=== PATIENT | female | born 1945 | race Asian ===

== ENCOUNTER → 2020-04-06 10:42 | Outpatient (CLI) | payer BC, SELFPAY ==
--- NOTE | ~2020-04-06 | DEXA_ITS ---
Bone Density Report Name: Lawson Verma Age: 75 Sex: Female Ethnicity: Date of : 1945 Indication: postmenopausal osteoporosis; monitoring treatment; height loss; prior fracture; Referring Provider: Lobo Hanson Study: Bone densitometry was performed. Exam Date: April 06, 2020 Accession number: [id number] Bone Density: Region BMD T-score Z-score Classification AP Spine (L1-L4) 0.783 -2.4 -0.1 Osteopenia Femoral Neck (Left) 0.710 -1.3 0.7 Osteopenia Total Hip (Left) 0.779 -1.3 0.3 Osteopenia Femoral Neck (Right) 0.730 -1.1 0.9 Osteopenia Total Hip (Right) 0.758 -1.5 0.2 Osteopenia Total Hip Mean 0.769 -1.4 0.3 Osteopenia World Health Organization criteria for BMD impression classify patients as: Normal (T-score at or above -1.0), Osteopenia (T-score between -1.0 and -2.5), or Osteoporosis (T-score at or below -2.5). 10-year Fracture Risk: FRAX not reported because: Treated for osteoporosis Previous Exams: Region Exam Age BMD T-score BMD Change BMD Change Date g/cm2 vs Baseline vs Previous AP Spine(L1-L4) 04/06/2020 75 0.783 -2.4 -0.079 0.016 11/24/2017 72 0.767 -2.5 -0.095 0.000 10/18/2015 70 0.767 -2.5 -0.095 0.010 09/11/2013 68 0.758 -2.6 -0.105 0.002 06/12/2011 66 0.756 -2.6 -0.106 -0.018 05/02/2010 65 0.774 -2.5 -0.089 -0.009 04/26/2009 64 0.783 -2.4 -0.079 0.026* 06/24/2007 62 0.757 -2.6 -0.105 -0.011 06/20/2005 60 0.768 -2.5 -0.094 -0.094 10/21/2003 58 0.862 -1.7 Total Hip(Left) 04/06/2020 75 0.779 -1.3 -0.059 -0.007 11/24/2017 72 0.786 -1.3 -0.052 0.000 10/18/2015 70 0.786 -1.3 -0.052 -0.028* 09/11/2013 68 0.814 -1.0 -0.024 0.000 06/12/2011 66 0.814 -1.0 -0.024 0.008 04/26/2009 64 0.806 -1.1 -0.032 -0.032 10/21/2003 58 0.838 -0.9 Total Hip(Right) 04/06/2020 75 0.758 -1.5 -0.028 -0.005 11/24/2017 72 0.762 -1.5 -0.023 -0.001 10/18/2015 70 0.764 -1.5 -0.022 -0.073* 09/11/2013 68 0.836 -0.9 0.051 0.055* 06/12/2011 66 0.781 -1.3 -0.004 0.013 04/26/2009 64 0.768 -1.4 -0.017 -0.017 10/21/2003 58 0.785 -1.3 *Denotes significance at 95% confidence level, LSC fo
--- NOTE | ~2020-04-06 | MM_ITS ---
EXAMINATION: MM screening [facility] BI w [place] HISTORY: Screening mammogram TECHNIQUE: Craniocaudal and mediolateral oblique 3-D tomosynthesis images were obtained and synthetic 2-D images were generated. CAD analysis was submitted and interpreted. COMPARISON: Comparison to multiple prior studies sequentially, with oldest reviewed study dated 10/18. BREAST PARENCHYMAL COMPOSITION: There are scattered areas of fibroglandular density. FINDINGS: There is an enlarging mass in the upper outer quadrant of the right breast appearing 1.7 cm . There is a smaller mass in the lower central aspect of the right breast measuring 7 mm. There are a re changes in both breasts consistent with previous breast reduction surgery. No mammographic evidenc e for malignancy in the left breast. IMPRESSION: 1. Enlarging right breast masses. 2. Right breast ultrasound recommended. BI-RADS Category 0: Incomplete: Needs additional imaging evaluation. Reviewed, dictated and finalized at location A.
== END ==
PROVIDERS: PCP Family Medicine Adolescent Medicine; Referring Provider Nurse Practitioner Obstetrics & Gynecology; Visit Provider Obstetrics & Gynecology
DX: Z78.0 Asymptomatic menopausal state (principal); Z12.31 Encounter for screening mammogram for malignant neoplasm of breast; R92.8 Other abnormal and inconclusive findings on diagnostic imaging of breast
CPT/HCPCS: 77063; 77067; 77080

== ENCOUNTER → 2020-05-12 09:50 | Outpatient (CLI) | payer BC, SELFPAY ==
--- NOTE | ~2020-05-12 | US_ITS ---
US breast RT complete 05/12/2020 10:14 Indication: Enlarging right breast mass Procedure: High-resolution ultrasound of the right breast Comparison: Comparison to multiple prior studies sequentially, with oldest reviewed study dated 10/18. Findings: In the area of patient's scar at 12:00, 2 cm from the nipple there is an irregular shaped h ypoechoic mass with posterior shadowing, likely fibrosis. At 1:00, 2 cm from the nipple there is a 5 mm cyst. There is an adjacent 4 mm cyst. At 7:00, 4 cm from the nipple, there is a 7 mm cyst. At 9:00 in the area of enlarging mass seen on mammogram there is a 1.8 cm cyst. Impression: 1: 1.8 cm cyst at 9:00 corresponding to the enlarging mass seen on mammography. No evidence for malig etienne. Routine yearly screening mammogram and regular clinical breast examination are recommended. BI-RADS CATEGORY 2 - BENIGN FINDINGS Reviewed, dictated and finalized at location A. Impression: 1: 1.8 cm cyst at 9:00 corresponding to the enlarging mass seen on mammography. No evidence for malignancy. Routine yearly screening mammogram and regular clinical breast examination are recommended. BI-RADS CATEGORY 2 - BENIGN FINDINGS
== END ==
PROVIDERS: Visit Provider Obstetrics & Gynecology
DX: R92.8 Other abnormal and inconclusive findings on diagnostic imaging of breast (principal)
CPT/HCPCS: 76641

== ENCOUNTER → 2021-04-27 12:45 | Outpatient (CLI) | payer BC, SELFPAY ==
--- NOTE | ~2021-04-27 | MM_ITS ---
EXAMINATION: MM screening [facility] BI w [place] HISTORY: Screening TECHNIQUE: Craniocaudal and mediolateral oblique 3-D tomosynthesis images were obtained and synthetic 2-D images were generated. CAD analysis was submitted and interpreted. COMPARISON: Comparison to multiple prior studies sequentially, with oldest reviewed study dated 11/05. BREAST PARENCHYMAL COMPOSITION: There are scattered areas of fibroglandular density. FINDINGS: Decreased size of benign-appearing right breast mass previously characterized as a cyst by ultrasound. There is no evidence of suspicious mass, calcification, or architectural distortion to anderson ggest malignancy in either breast. There has been no suspicious interval change. IMPRESSION: 1. No mammographic evidence of malignancy. 2. Recommend routine screening mammography in one year. BI-RADS Category 2: Benign finding(s). Reviewed, dictated and finalized at location A.
== END ==
PROVIDERS: Visit Provider Nurse Practitioner Obstetrics & Gynecology
DX: Z12.31 Encounter for screening mammogram for malignant neoplasm of breast (principal)
CPT/HCPCS: 77063; 77067

== ENCOUNTER → 2022-11-01 10:49 | Outpatient (CLI) | payer BC, SELFPAY ==
--- NOTE | ~2022-11-01 | US_ITS ---
Pelvic ultrasound. Clinical History: Pelvic pain Technique: Realtime transabdominal and transvaginal scanning of the pelvis was performed. Color flow Doppler and Doppler spectral analysis were performed. Findings: The uterus is anteverted. The endometrial stripe has a thickness of 2 mm. Probable small n abothian cyst noted. There is a 2.2 x 1.2 cm right ovarian cyst. There is ovarian tissue splayed around the cyst. The left ovary is not visualized. No significant left ovarian or adnexal mass is seen. There is no evidence of free fluid in the cul de sac. Impression: 2.2 x 1.2 simple appearing right ovarian cyst. No further follow-up required for this finding. Reviewed, dictated and finalized at location . SLITTER Impression: 2.2 x 1.2 simple appearing right ovarian cyst. No further follow-up required fo r this finding.
== END ==
PROVIDERS: PCP Family Medicine Adolescent Medicine; Visit Provider Physician Assistant
DX: R10.31 Right lower quadrant pain (principal); N83.201 Unspecified ovarian cyst, right side
CPT/HCPCS: 76830; 76856

== ENCOUNTER → 2023-06-05 10:23 | Outpatient (CLI) | payer MEDICARE, OTHER, SELFPAY ==
--- NOTE | ~2023-06-05 | DEXA_ITS ---
Bone Density Report Name: SHERIE GRIFFIN Age: 78 Sex: Female Ethnicity: Date of : 1945 Indication: osteopenia; monitoring treatment; height loss; prior fracture; hysterectomy; postmenopausal Referring Provider: MERCEDES WU Study: Bone densitometry was performed. Exam Date: June 05, 2023 Accession number: [id number] Bone Density: Region BMD T-score Z-score Classification AP Spine (L1-L4) 0.780 -2.4 0.0 Osteopenia Femoral Neck (Left) 0.671 -1.6 0.5 Osteopenia Total Hip (Left) 0.794 -1.2 0.6 Osteopenia Femoral Neck (Right) 0.715 -1.2 0.9 Osteopenia Total Hip (Right) 0.758 -1.5 0.3 Osteopenia Total Hip Mean 0.776 -1.4 0.5 Osteopenia World Health Organization criteria for BMD impression classify patients as: Normal (T-score at or above -1.0), Osteopenia (T-score between -1.0 and -2.5), or Osteoporosis (T-score at or below -2.5). 10-year Fracture Risk: FRAX not reported because: Treated for osteoporosis Previous Exams: Region Exam Age BMD T-score BMD Change BMD Change Date g/cm2 vs Baseline vs Previous AP Spine(L1-L4) 06/05/2023 78 0.780 -2.4 -0.083 -0.003 04/06/2020 75 0.783 -2.4 -0.079 0.016 11/24/2017 72 0.767 -2.5 -0.095 0.000 10/18/2015 70 0.767 -2.5 -0.095 0.010 09/11/2013 68 0.758 -2.6 -0.105 0.002 06/12/2011 66 0.756 -2.6 -0.106 -0.018 05/02/2010 65 0.774 -2.5 -0.089 -0.009 04/26/2009 64 0.783 -2.4 -0.079 0.026* 06/24/2007 62 0.757 -2.6 -0.105 -0.105 10/21/2003 58 0.862 -1.7 Total Hip(Left) 06/05/2023 78 0.794 -1.2 -0.043 0.016 04/06/2020 75 0.779 -1.3 -0.059 -0.007 11/24/2017 72 0.786 -1.3 -0.052 0.000 10/18/2015 70 0.786 -1.3 -0.052 -0.028* 09/11/2013 68 0.814 -1.0 -0.024 0.000 06/12/2011 66 0.814 -1.0 -0.024 0.008 04/26/2009 64 0.806 -1.1 -0.032 -0.032 10/21/2003 58 0.838 -0.9 Total Hip(Right) 06/05/2023 78 0.758 -1.5 -0.028 0.000 04/06/2020 75 0.758 -1.5 -0.028 -0.005 11/24/2017 72 0.762 -1.5 -0.023 -0.001 10/18/2015 70 0.764 -1.5 -0.022 -0.073* 09/11/2013 68 0.836 -0.9 0.051 0.055* 06/12/2011 66 0.781 -1.3 -0.004 0.013 04/26/2009 64 0.768 -1.4 -0.017 -0.017 10/21/2003 58 0.785 -1.
== END ==
PROVIDERS: PCP Family Medicine Adolescent Medicine; Visit Provider Obstetrics & Gynecology Gynecology
DX: M85.88 Other specified disorders of bone density and structure, other site (principal); Z78.0 Asymptomatic menopausal state
CPT/HCPCS: 77080

== ENCOUNTER → 2023-08-05 09:15 | Outpatient (CLI) | payer MEDICARE, OTHER, SELFPAY ==
--- NOTE | ~2023-08-05 | US_ITS ---
EXAMINATION: US abdomen limited DATE: 08/05/2023 09:47 INDICATION: Right upper quadrant abdominal pain. Diarrhea. TECHNIQUE: Multiple grayscale and Doppler ultrasound images of the abdomen were obtained. COMPARISON: CT abdomen and pelvis 07/29/2006 FINDINGS: Abdominal aorta is normal in caliber. The visualized portions of the head, body, and tail o f the pancreas are normal. The liver is normal without focal lesion. There is normal flow in main por hua vein. The gallbladder is normal in size. No gallstones or gallbladder wall thickening. There is n o sonographic Lui sign. The common duct is normal and measures 2 mm. Right kidney is normal. IMPRESSION: 1. Normal right upper quadrant ultrasound. Reviewed, dictated and finalized at location E.
== END ==
PROVIDERS: PCP Obstetrics & Gynecology Gynecology; Visit Provider Nurse Practitioner Family
DX: R10.11 Right upper quadrant pain (principal)
CPT/HCPCS: 76705

== ENCOUNTER 2024-02-02 11:07 | Outpatient (CLI) | payer MEDICARE, OTHER, SELFPAY ==
--- NOTE | ~2024-02-02 | CT_ITS ---
Non-contrast CT scan of the Abdomen and Pelvis Clinical indication: Abdominal pain Technique: 2.5 mm axial scans were obtained through the abdomen and pelvis without intravenous or or al contrast. Dose reduction technique was used on this scan by utilizing automated exposure control a nd iterative reconstruction technique. The dose-length product (DLP) was 576.44 mGy-cm. Findings: Images through the lung bases reveal no abnormalities. There is no evidence of renal or ureteral calculi. The kidneys and the ureters are nondilated. The liver, spleen, pancreas, and adrenals appear normal. Gallbladder not visualized. There is no aort ic aneurysm. There is no evidence of bowel obstruction. Very small fat-containing umbilical hernia present. Images through the pelvis were performed. There is no evidence of ascites or lymphadenopathy. Urinary bladder unremarkable. 3 cm right ovarian cyst present. No ascites. Impression: 3 cm right ovarian cyst. Pelvic ultrasound should be considered to further evaluate given patient age . Very small fat-containing umbilical hernia. Reviewed, dictated and finalized at [facility]. Impression: 3 cm right ovarian cyst. Pelvic ultrasound should be considered to further eval uate given patient age. Very small fat-containing umbilical hernia.
== END 2024-02-02 11:08 ==
LOC: MICIMG 11:08
PROVIDERS: PCP Nurse Practitioner Family; Visit Provider Nurse Practitioner Family
DX: R10.32 Left lower quadrant pain (principal); N83.201 Unspecified ovarian cyst, right side; K42.9 Umbilical hernia without obstruction or gangrene
CPT/HCPCS: 74176

== ENCOUNTER 2024-02-11 16:08 | Outpatient (CLI) | payer MEDICARE, OTHER, SELFPAY ==
--- NOTE | ~2024-02-11 | MM_ITS ---
EXAMINATION: MM screening [facility] BI w [facility] HISTORY: Screening mammogram TECHNIQUE: Craniocaudal and mediolateral oblique 3-D tomosynthesis images were obtained and synthetic 2-D images were generated. CAD analysis was submitted and interpreted. COMPARISON: 04/27/2021 bilateral screening mammogram examination BREAST PARENCHYMAL COMPOSITION: There are scattered areas of fibroglandular density. FINDINGS: Stable mild fibroglandular asymmetry and mild bilateral breast benign calcification. There is a history of bilateral reduction mammoplasty with breast lift. There is no evidence of suspicious mass, calcification, or architectural distortion to suggest malignancy in either breast. There has be en no suspicious interval change. IMPRESSION: 1. No mammographic evidence of malignancy. No significant change since 04/27/2021 2. Recommend routine screening mammography in one year. BI-RADS Category 2: Benign finding(s). Reviewed, dictated and finalized at location B. IMPRESSION: 1. No mammographic evidence of malignancy. No significant change since 2. Recommend routine screening mammography in one year. BI-RADS Category 2: Benign finding(s).
== END 2024-02-11 16:09 ==
PROVIDERS: PCP Nurse Practitioner; Visit Provider Nurse Practitioner
DX: Z12.31 Encounter for screening mammogram for malignant neoplasm of breast (principal)
CPT/HCPCS: 77063; 77067

== ENCOUNTER 2024-02-25 00:35 | Day surgery (SDC) | payer MEDICARE, OTHER, SELFPAY ==
[2024-02-13 15:38] VITALS: BMI 29.1
--- NOTE | 2024-02-25 10:29 | P.PNAN_ITS ---
Anes - Initial Pre Proc Eval Procedure: Operation Date: 02/25/24 14:00 Proposed Procedures p Esophagogastroduodenoscopy & Colonoscopy - Mack Tucker MD Date/Time: 02/25/24 10:29 Surgeon: Mack Tucker MD Pre Op Diagnosis: lower abdominal pain unspecified, right upper quad Patient Data Age: 78 Gender: F Height: 1.55 m Weight: 70 kg Allergies Allergy/AdvReac Type Severity Reaction Status Date / Time Tetracyclines Allergy Intermediate Hives Verified 02/17/24 14:11 Home Medications Medication Instructions Recorded Confirmed Type triamcinolone acetonide 0.025 % 1 applic topical BID #15 grams 01/27/24 02/13/24 Rx topical cream ibandronate 150 mg tablet 150 mg PO MONTHLY 02/13/24 02/13/24 History Patient hx anesthesia problems: none Family hx anesthesia problems: none Results Review: All pre-operative results and documents have been reviewed as part of the pre- operative evaluation. [facility] Past Medical History Medical History (Updated 02/25/24 @ 10:30 by Cesar Baiely DO) Anxiety Epigastric pain Osteopenia Surgical History Surgical History (Updated 02/25/24 @ 10:30 by Cesar Bailey DO) History of appendectomy Hx of section Social History Social History Smoking status: Never smoker Alcohol intake: never Substance use: never Substance use type: does not use Living arrangements: with family Gender identity (if verbalized by the patient): Female Spiritual care concerns: No Anes - Eval Final PreProcedure Day of Procedure 02/25/24 10:29 Patient weight: normal Heart: regular rate and rhythm Lungs: clear to auscultation and normal air movement Airway: Mallampati scale class 1 Neurological: alert and oriented Last oral intake: >/= 8 hours ASA classification: II Emergent: no Anesthetic plan: proceed Anesthesia type and monitoring: general GIVS and standard monitoring Results Review: All pre-operative results and documents have been reviewed as part of the pre- operative evaluation. Informed Consent: The patient's anesthetic plan and its attendant risks and benefits were discussed with the patient/family/POA. Questions were solicited and answers provided to the satisfaction of the patient/family/POA.
[2024-02-25 12:03] VITALS: BP 124/60; PULSE 81; RESP 18; TEMP 36.8; O2SAT 98
[2024-02-25] MEDS: LACTATED RINGERS 1,000 ML 150 ML IV CONT (12:09)
--- NOTE | 2024-02-25 12:36 | WPDHPUPDATE1 ---
History and Physical Update Update Date/Time: 02/25/24 12:36 History and Physical has been reviewed, including an updated exam of the patient. There are NO changes in the patient's condition. Risks, benefits, and alternatives have been discussed and questions answered. Patient agrees to proceed with procedure.
[2024-02-25] MEDS: BENZOCAINE (*SP) 60 ML SPRAY CAN (HURRICAINE) 1 SPRAY MUCOUS MEM (12:42)
--- NOTE | 2024-02-25 13:04 | SUR.OPER ---
EGD start 1244 end 1259, Colonoscopy start 1304.
[2024-02-25 13:16] VITALS: BP 93/48; PULSE 72; RESP 21; O2SAT 100
[2024-02-25 13:26] VITALS: BP 119/60; PULSE 75; RESP 21; O2SAT 100
[2024-02-25 13:36] VITALS: BP 111/62; PULSE 70; RESP 20; O2SAT 100
== END 2024-02-25 13:54 | disposition home or self-care (01) ==
PROVIDERS: PCP Family Medicine Adolescent Medicine; Referring Provider Nurse Practitioner Family; Visit Provider Internal Medicine Gastroenterology
PROC: 0DJ08ZZ Inspection of Upper Intestinal Tract, Via Natural or Artificial Opening Endoscopic (ICD-10-PCS; CPT 43235; principal; 2024-02-25 14:00)
DX: Z12.11 Encounter for screening for malignant neoplasm of colon (principal); D12.3 Benign neoplasm of transverse colon; D12.5 Benign neoplasm of sigmoid colon; K64.8 Other hemorrhoids; K31.7 Polyp of stomach and duodenum
CPT/HCPCS: 45385; 43239; 43251; 88305; J2704; J7120

== ENCOUNTER 2024-08-04 09:53 | Outpatient (CLI) | payer MEDICARE, OTHER, SELFPAY ==
--- NOTE | ~2024-08-04 | MR_ITS ---
MRI of the brain Clinical History: Paresthesia scan Technique: Axial and sagittal T1-weighted images were acquired. These were followed by axial T2-weigh nakia, diffusion weighted, gradient, and FLAIR images. Findings: There is no acute infarct, intracranial hemorrhage or mass lesion. There are mild chronic w juany matter changes in the periventricular white matter bilaterally. Ventricles and subarachnoid spaces are minimally prominent. Orbits are unremarkable. Paranasal sinuse s and mastoid air cells are clear. Major intracranial flow voids appear intact. Sagittal midline structures are intact. IMPRESSION: No acute infarct, intracranial hemorrhage, or mass lesion. Mild chronic microvascular ischemic changes and mild generalized atrophy. Reviewed, dictated and finalized at [facility].
== END 2024-08-04 09:54 | disposition home or self-care (01) ==
LOC: MICIMG 09:54
PROVIDERS: PCP Family Medicine Adolescent Medicine; Visit Provider Nurse Practitioner Family
DX: I67.82 Cerebral ischemia (principal); G31.9 Degenerative disease of nervous system, unspecified; R20.2 Paresthesia of skin
CPT/HCPCS: 70551

== ENCOUNTER 2025-06-29 13:27 | Outpatient (CLI) | payer MEDICARE, OTHER, SELFPAY ==
--- NOTE | ~2025-06-29 | DEXA_ITS ---
Bone Density Report Name: SHERIE GRIFFIN Age: 80 Sex: Female Ethnicity: Date of : 1945 Indication: osteopenia; monitoring treatment; prior fracture; Referring Provider: RAMON, KATHARINA Study: Bone densitometry was performed. Exam Date: June 29, 2025 Accession number: [id number] Bone Density: Region BMD T-score Z-score Classification AP Spine(L1-L4) 0.784 -2.4 0.2 Osteopenia Femoral Neck (Left) 0.685 -1.5 0.7 Osteopenia Total Hip (Left) 0.762 -1.5 0.5 Osteopenia Femoral Neck (Right) 0.660 -1.7 0.5 Osteopenia Total Hip (Right) 0.748 -1.6 0.4 Osteopenia Total Hip Mean 0.755 -1.6 0.5 Osteopenia World Health Organization criteria for BMD impression classify patients as: Normal (T-score at or above -1.0), Osteopenia (T-score between -1.0 and -2.5), or Osteoporosis (T-score at or below -2.5). 10-year Fracture Risk: FRAX not reported because: Treated for osteoporosis Previous Exams: -- Region Exam Age BMD T-score BMD Change BMD Change Date g/cm2 vs Baseline vs Previous -- AP Spine (L1-L4) 06/29/2025 80 0.784 -2.4 -9.0%# 0.6% 06/05/2023 78 0.780 -2.4 -9.6%# -0.4% 04/06/2020 75 0.783 -2.4 -9.2%# 2.1% 11/24/2017 72 0.767 -2.5 -11.0%# 0.0% 10/18/2015 70 0.767 -2.5 -11.0%# 1.3% 09/11/2013 68 0.758 -2.6 -12.1%# 0.2% 06/12/2011 66 0.756 -2.6 -12.3%# -2.3% 05/02/2010 65 0.774 -2.5 -10.3%# -1.2% 04/26/2009 64 0.783 -2.4 -9.2%# -9.2%# 10/21/2003 58 0.862 -1.7 Total Hip(Left) 06/29/2025 80 0.762 -1.5 -9.1%# -4.1%* 06/05/2023 78 0.794 -1.2 -5.2%# 2.0% 04/06/2020 75 0.779 -1.3 -7.0%# -0.9% 11/24/2017 72 0.786 -1.3 -6.2%# 0.0% 10/18/2015 70 0.786 -1.3 -6.2%# -3.5%* 09/11/2013 68 0.814 -1.0 -2.8%# 0.0% 06/12/2011 66 0.814 -1.0 -2.8%# 1.0% 04/26/2009 64 0.806 -1.1 -3.8%# -3.8%# 10/21/2003 58 0.838 -0.9 Total Hip(Right) 06/29/2025 80 0.748 -1.6 -4.8%# -1.3% 06/05/2023 78 0.758 -1.5 -3.5%# 0.0% 04/06/2020 75 0.758 -1.5 -3.6%# -0.6% 11/24/2017 72 0.762 -1.5 -3.0%# -0.2% 10/18/2015 70 0.764 -1.5 -2.8%# -8.7%* 09/11/2013 68 0.836 -0.9 6.5%# 7.1%* 06/12/2011 66 0.781 -1.3 -0.5%# 1.7% 04/26/2009 64 0.768 -1.4 -2.2%# -2.2%# 10/21/2003 58 0.785 -1.3 -- *Denotes significance at 95% confidence level, LSC for AP Spine = 0.022 g/cm2, LSC for Total Hip = 0.027 g/cm2 # Denotes dissimilar scan types or analysis methods Clinical Information Provided by Patient: Has had a low trauma fracture Is being treated for osteoporosis Has used the following medications: Boniva (i.e. ibandronate) Patient maximum height was 62 Menopause Age: 54 No regular weight bearing exercise Does not regularly consume dairy products Drinks caffeinated beverages Onset of menses at age 16 Number of children 5 Impression: The patient has low bone mass, based on the Total Spine T-score. The patient has risk factors, including: previous fracture. The BMD for the Total Hip(Left) decreased, changing by -4.1% since the last DXA exam. Discussion: SIGNIFICANT BONE LOSS OBSERVED. Adherence to therapy (including calcium and vitamin D intake) should be assessed. If compliance is not a factor, review management and exclusion of secondary causes of bone loss. It is important to ask patients whether they are taking their medications and to encourage continued and appropriate compliance with their osteoporosis therapies to reduce fracture risk. It is also important to review their risk factors and encourage appropriate calcium and vitamin D intakes, exercise, fall prevention and other lifestyle measures. Follow-Up: Consider a repeat BMD and Vertebral Fracture Assessment (VFA) exam in 2 years or sooner if medically necessary, to reassess this patient's status. Reported by: RENETTA on 06/29/2025 1:59:00 PM. Reviewed, dictated and finalized at location A.
--- NOTE | ~2025-06-29 | MM_ITS ---
EXAMINATION: MM screening [facility] BI w [place] HISTORY: Screening TECHNIQUE: Craniocaudal and mediolateral oblique 3-D tomosynthesis images were obtained and synthetic 2-D images were generated. CAD analysis was submitted and interpreted. COMPARISON: 04/24/2020 and 04/27/2021 BREAST PARENCHYMAL COMPOSITION: There are scattered areas of fibroglandular density. FINDINGS: There is no evidence of suspicious calcifications, or architectural distortion to suggest malignancy. Mass in the upper outer quadrant of the right breast, middle depth. IMPRESSION: 1. Mass in the upper-outer quadrant of the right breast, middle depth. The study is incomplete. A diagnostic mammogram and a diagnostic ultrasound are recommended. 2. No mammographic evidence for malignancy in the left breast. BI-RADS 0: Incomplete-Need additional imaging evaluation. Reviewed, dictated and finalized at location Q. IMPRESSION: 1. Mass in the upper-outer quadrant of the right breast, middle depth. The stud y is incomplete. A diagnostic mammogram and a diagnostic ultrasound are recomme nded. 2. No mammographic evidence for malignancy in the left breast. BI-RADS 0: Incomplete-Need additional imaging evaluation.
== END 2025-06-29 13:28 | disposition home or self-care (01) ==
LOC: MICIMG 13:28
PROVIDERS: PCP Family Medicine Adolescent Medicine; Visit Provider Nurse Practitioner
DX: Z12.31 Encounter for screening mammogram for malignant neoplasm of breast (principal); R92.8 Other abnormal and inconclusive findings on diagnostic imaging of breast; M85.89 Other specified disorders of bone density and structure, multiple sites; Z78.0 Asymptomatic menopausal state
CPT/HCPCS: 77063; 77067; 77080